=== PATIENT | female | born 1935 | race Caucasian/White ===

== ENCOUNTER → 2017-07-08 | Outpatient (CLI) | payer MEDICARE ==
[~2017-07-08] MED LIST: ACCUPRIL40 MG PO; ASPIR LOW81 MG PO; BACTRIM DS 8001 TA1 PO; CALTRATE 600600 MG PO; DITROPAN5 MG PO; HYDROCODONE BIT1 T11 PO; LYRICA75 M1 PO; NORVASC10 MG PO; PERCOCET 325 MG1 TA2 PO; PREDNISONE20 M1 PO; SYNTHROID25 MCG PO; VITAMIN D400 IU PO; VITAMIN E PO
[2017-07-08 10:50] LABS: BILIRUBIN NEGATIVE (NEGATIVE); BLOOD 3+ (NEGATIVE); CLARITY CLOUDY (CLEAR); COLOR YELLOW (YELLOW); GLUCOSE NEGATIVE (NEGATIVE); KETONE NEGATIVE (NEGATIVE); LEUKO ESTERASE 2+ (NEGATIVE); NITRITE NEGATIVE (NEGATIVE); UROBILINOGEN 0.2 E.U./dl (0.2-1.0)
[2017-07-08 11:05] LABS: RBC TNTC rbc/hpf (0-2)
[2017-07-08 11:06] LABS: BACTERIA 1+
== END | disposition home or self-care (01) ==
LOC: LAB 09:32 → CT 10:00
PROVIDERS: Urology
DX: N13.39 Other hydronephrosis (principal); N39.0 Urinary tract infection, site not specified

== ENCOUNTER → 2017-08-19 | Outpatient (CLI) | payer MEDICARE ==
[2017-08-19 11:07] LABS: BASO % 0.5 % (0.0-1.0); EOS # 0.2 10*3/uL (0.0-0.4); EOS % 3.2 % (1.0-4.0); HEMATOCRIT 39.7 % (37.0-47.0); HEMOGLOBIN 13.2 g/dl (12.0-16.0); LYMPH # 1.9 10*3/uL (1.3-4.4); LYMPH % 32.7 % (27.0-41.0); MEAN CELL VOLUME 92.5 fl (81.0-99.0); MEAN CORPUSCULAR HGB 30.8 pg (27.0-31.0); MEAN CORPUSCULAR HGB CONC 33.2 g/dl (33.0-37.0); MEAN PLATELET VOLUME 10.9 fl (9.6-12.3); MONO # 0.5 10*3/uL (0.1-1.0); MONO % 8.1 % (3.0-9.0); NEUT # 3.1 10*3/uL (2.3-7.9); NEUT % 55.3 % (47.0-73.0); PLATELET COUNT AUTOMATED 212 10*3/uL (130-400); RED BLOOD COUNT 4.29 10*6/uL (4.10-5.10); RED CELL DISTRI WIDTH 14.1 % (0-14.5); WHITE BLOOD COUNT 5.7 10*3/uL (4.8-10.8)
[2017-08-19 11:42] LABS: ALKALINE PHOSPHATASE 97 U/L (45-117); BUN 20 mg/dl (7-24); CHLORIDE 107 mmol/L (98-107); POTASSIUM 4.4 mmol/L (3.5-5.1); SGOT/AST 24 IU/L (3-35); SGPT/ALT 24 U/L (12-78); SODIUM 140 mmol/L (136-145); T3 UPTAKE 35 % (31-39); THYROXINE (T4) TOTAL 8.6 ug/dl (4.8-13.9); TOTAL PROTEIN 7.5 gm/dL (6.4-8.2)
[2017-08-19 12:30] LABS: BILIRUBIN NEGATIVE (NEGATIVE); BLOOD NEGATIVE (NEGATIVE); CLARITY CLEAR (CLEAR); COLOR YELLOW (YELLOW); GLUCOSE NEGATIVE (NEGATIVE); KETONE NEGATIVE (NEGATIVE); LEUKO ESTERASE NEGATIVE (NEGATIVE); NITRITE NEGATIVE (NEGATIVE); SPECIFIC GRAVITY <= 1.005 (1.005-1.030); UROBILINOGEN 0.2 E.U./dl (0.2-1.0)
[2017-08-19 12:50] LABS: BACTERIA TRACE; RBC 0-2 rbc/hpf (0-2); WBC 0-2 wbc/hpf (0-5)
== END | disposition home or self-care (01) ==
LOC: LAB 10:41 → US 11:00
PROVIDERS: Urology
DX: E83.50 Unspecified disorder of calcium metabolism (principal); K82.8 Other specified diseases of gallbladder

== ENCOUNTER 2017-09-20 10:03 | Emergency (ER) | payer MEDICARE ==
[~2017-09-20] VITALS: Ht 144.7 cm; Wt 60.3 kg
[2017-09-20 10:14] VITALS: BP 157/67
[2017-09-20] MEDS ORDERED: CEPHALEXIN500 M1 PO (10:34)
== END 2017-09-20 10:40 | disposition home or self-care (01) ==
LOC: ED 10:03
DX: L84 Corns and callosities (principal); Z90.710 Acquired absence of both cervix and uterus; Z98.890 Other specified postprocedural states; Z90.49 Acquired absence of other specified parts of digestive tract; Z79.899 Other long term (current) drug therapy; Z79.82 Long term (current) use of aspirin

== ENCOUNTER → 2017-10-06 | Outpatient (CLI) | payer MEDICARE ==
[~2017-10-06] MED LIST changes: +CEPHALEXIN500 M1 PO
== END | disposition home or self-care (01) ==
LOC: RAD 09-22 11:00
DX: Z13.820 Encounter for screening for osteoporosis (principal); N95.9 Unspecified menopausal and perimenopausal disorder; Z90.710 Acquired absence of both cervix and uterus; E55.9 Vitamin D deficiency, unspecified; M81.0 Age-related osteoporosis without current pathological fracture; E23.7 Disorder of pituitary gland, unspecified

== ENCOUNTER → 2018-01-06 | Outpatient (CLI) | payer MEDICARE | END | disposition home or self-care (01) | LOC: CT 13:51 | DX: N20.0 Calculus of kidney (principal); K80.20 Calculus of gallbladder without cholecystitis without obstruction; K57.30 Diverticulosis of large intestine without perforation or abscess without bleeding ==

== ENCOUNTER → 2018-07-21 | Outpatient (CLI) | payer MEDICARE | END | disposition home or self-care (01) | LOC: WOUNDCARE 02:24 | DX: L89.892 Pressure ulcer of other site, stage 2 (principal); I10 Essential (primary) hypertension; E03.9 Hypothyroidism, unspecified; G62.9 Polyneuropathy, unspecified; M19.90 Unspecified osteoarthritis, unspecified site; Z90.710 Acquired absence of both cervix and uterus ==

== ENCOUNTER → 2018-09-06 | Outpatient (CLI) | payer MEDICARE | END | disposition home or self-care (01) | LOC: WOUNDCARE 10:04 | DX: L89.892 Pressure ulcer of other site, stage 2 (principal); L84 Corns and callosities; I10 Essential (primary) hypertension; G62.9 Polyneuropathy, unspecified; E03.9 Hypothyroidism, unspecified; M19.90 Unspecified osteoarthritis, unspecified site; Z87.891 Personal history of nicotine dependence ==

== ENCOUNTER → 2018-09-17 | Outpatient (CLI) | payer MEDICARE | END | disposition home or self-care (01) | LOC: WOUNDCARE 00:32 | DX: L89.892 Pressure ulcer of other site, stage 2 (principal); G62.9 Polyneuropathy, unspecified; I10 Essential (primary) hypertension; E03.9 Hypothyroidism, unspecified; M19.90 Unspecified osteoarthritis, unspecified site ==

== ENCOUNTER → 2019-06-01 | Outpatient (CLI) | payer MEDICARE | END | disposition home or self-care (01) | LOC: US 14:49 | DX: K80.20 Calculus of gallbladder without cholecystitis without obstruction (principal); K76.0 Fatty (change of) liver, not elsewhere classified ==

== ENCOUNTER → 2019-10-13 | Outpatient (CLI) | payer MEDICARE | END | disposition home or self-care (01) | LOC: NM 10-12 10:00 | DX: M41.86 Other forms of scoliosis, lumbar region (principal); M15.9 Polyosteoarthritis, unspecified ==

== ENCOUNTER → 2021-01-11 | Outpatient (CLI) | payer MEDICARE | END | disposition home or self-care (01) | LOC: MRI 10:38 | PROVIDERS: ATTEND Anesthesiology | DX: M50.322 Other cervical disc degeneration at C5-C6 level (principal); M47.812 Spondylosis without myelopathy or radiculopathy, cervical region; M43.12 Spondylolisthesis, cervical region; M48.02 Spinal stenosis, cervical region; M25.78 Osteophyte, vertebrae ==

== ENCOUNTER 2021-01-30 11:53 | Inpatient (IN) | payer MEDICARE ==
[~2021-01-30] VITALS: Ht 144.7 cm; Wt 60.0 kg
[2021-01-30 12:22] LABS: BASO # 0.1 10*3/uL (0.0-0.1); BASO % 0.7 % (0.0-1.0); EOS # 0.1 10*3/uL (0.0-0.4); EOS % 1.1 % (1.0-4.0); HEMATOCRIT 40.1 % (37.0-47.0); LYMPH # 1.3 10*3/uL (1.3-4.4); LYMPH % 17.7 % (27.0-41.0); MEAN CELL VOLUME 95.2 fl (81.0-99.0); MEAN CORPUSCULAR HGB 30.6 pg (27.0-31.0); MEAN CORPUSCULAR HGB CONC 32.2 g/dl (33.0-37.0); MEAN PLATELET VOLUME 10.8 fl (9.6-12.3); MONO # 0.6 10*3/uL (0.1-1.0); MONO % 7.4 % (3.0-9.0); NEUT # 5.4 10*3/uL (2.3-7.9); NEUT % 72.8 % (47.0-73.0); PLATELET COUNT AUTOMATED 272 10*3/uL (130-400); RED BLOOD COUNT 4.21 10*6/uL (4.10-5.10); RED CELL DISTRI WIDTH 13.6 % (0-14.5); WHITE BLOOD COUNT 7.4 10*3/uL (4.8-10.8)
[2021-01-30] MEDS ORDERED: OS-CAL 500+D31 EACH PO (12:27)
[2021-01-30] MEDS ORDERED: ARMOUR THYROID30 M1 PO ×2 (12:28→13:54)
[2021-01-30 12:30] VITALS: BP 124/86
[2021-01-30] MEDS ORDERED: SEPTDS PO ×2 (12:35→13:55)
[2021-01-30 12:38] LABS: ALBUMIN 3.8 gm/dl (3.1-4.5); ALKALINE PHOSPHATASE 110 U/L (45-117); BUN 27 mg/dl (7-24); CHLORIDE 107 mmol/L (98-107); CREATININE 1.43 mg/dL (0.55-1.02); LIPASE 36 U/L (73-393); POTASSIUM 4.9 mmol/L (3.5-5.1); SGOT/AST 25 IU/L (3-35); SGPT/ALT 22 U/L (12-78); SODIUM 137 mmol/L (136-145)
[2021-01-30 12:51] LABS: TROPONIN I < 0.015 ng/ml (<0.045)
[2021-01-30 12:52] LABS: TOTAL PROTEIN 7.6 gm/dL (6.4-8.2)
[2021-01-30 12:53] LABS: BILIRUBIN Negative (Negative); BLOOD Negative (Negative); CLARITY Clear (Clear); COLOR Yellow (Yellow); GLUCOSE Negative (Negative); KETONE Negative (Negative); LEUKO ESTERASE 1+ (Negative); NITRITE Positive (Negative); SPECIFIC GRAVITY <= 1.005 (1.001-1.030); UROBILINOGEN 0.2 E.U./dl (0.0-1.0)
[2021-01-30 13:20] LABS: BACTERIA 1+
[2021-01-30] MEDS ORDERED: LYRICA150 M1 PO (13:50)
[2021-01-30] MEDS ORDERED: VICO10300 PO (13:52)
[2021-01-30] MEDS ORDERED: QUINAPRIL40 MG PO (13:53)
[2021-01-30] MEDS ORDERED: OYSTER SHELL C1 EAC3 PO (13:53)
[2021-01-30] MEDS ORDERED: ALENDRONATE SOD70 M1 PO (13:54)
[2021-01-30] MEDS ORDERED: ASPIRIN CHEWABL81 MG PO (13:55)
[2021-01-30] MEDS ORDERED: VITAMIN E1000 UNI1 PO (13:58)
[2021-01-30 17:00] VITALS: BP 125/46
[2021-01-30 20:00] VITALS: BP 128/48
[2021-01-31] VITALS: BP 132/64
[2021-01-31 06:26] LABS: BASO % 0.7 % (0.0-1.0); EOS # 0.2 10*3/uL (0.0-0.4); EOS % 2.7 % (1.0-4.0); HEMATOCRIT 35.2 % (37.0-47.0); LYMPH % 34.6 % (27.0-41.0); MEAN CELL VOLUME 96.7 fl (81.0-99.0); MEAN CORPUSCULAR HGB 30.8 pg (27.0-31.0); MEAN CORPUSCULAR HGB CONC 31.8 g/dl (33.0-37.0); MEAN PLATELET VOLUME 11.2 fl (9.6-12.3); MONO # 0.5 10*3/uL (0.1-1.0); MONO % 9.4 % (3.0-9.0); NEUT % 52.2 % (47.0-73.0); PLATELET COUNT AUTOMATED 235 10*3/uL (130-400); RED BLOOD COUNT 3.64 10*6/uL (4.10-5.10); RED CELL DISTRI WIDTH 13.6 % (0-14.5); WHITE BLOOD COUNT 5.7 10*3/uL (4.8-10.8)
[2021-01-31 06:32] LABS: CREATININE 1.07 mg/dL (0.55-1.02); POTASSIUM 4.7 mmol/L (3.5-5.1); TOTAL PROTEIN 6.3 gm/dL (6.4-8.2)
[2021-01-31 08:00] VITALS: BP 147/54
[2021-01-31 12:00] VITALS: BP 148/52
[2021-01-31 16:00] VITALS: BP 152/57
[2021-01-31 20:00] VITALS: BP 150/59
[2021-02-01] VITALS: BP 156/61
[2021-02-01 06:13] LABS: BASO % 0.5 % (0.0-1.0); EOS # 0.2 10*3/uL (0.0-0.4); EOS % 3.7 % (1.0-4.0); HEMATOCRIT 35.2 % (37.0-47.0); LYMPH # 2.4 10*3/uL (1.3-4.4); LYMPH % 38.3 % (27.0-41.0); MEAN CELL VOLUME 96.2 fl (81.0-99.0); MEAN CORPUSCULAR HGB 30.9 pg (27.0-31.0); MEAN CORPUSCULAR HGB CONC 32.1 g/dl (33.0-37.0); MEAN PLATELET VOLUME 11.1 fl (9.6-12.3); MONO # 0.6 10*3/uL (0.1-1.0); MONO % 8.9 % (3.0-9.0); NEUT % 48.3 % (47.0-73.0); PLATELET COUNT AUTOMATED 233 10*3/uL (130-400); RED BLOOD COUNT 3.66 10*6/uL (4.10-5.10); RED CELL DISTRI WIDTH 13.6 % (0-14.5); WHITE BLOOD COUNT 6.3 10*3/uL (4.8-10.8)
[2021-02-01 06:27] LABS: BUN 19 mg/dl (7-24); CHLORIDE 115 mmol/L (98-107); CREATININE 1.05 mg/dL (0.55-1.02); POTASSIUM 4.3 mmol/L (3.5-5.1); SODIUM 143 mmol/L (136-145)
[2021-02-01 08:00] VITALS: BP 154/58
== END 2021-02-01 09:55 | disposition home health service (06) | DRG 683 ==
LOC: ED 11:53 → 5E 13:57 → EDHOLD 13:57 → 5E 16:27
PROVIDERS: Emergency Medicine; ADMIT Internal Medicine; ATTEND Internal Medicine
DX: N17.0 Acute kidney failure with tubular necrosis (principal); E44.1 Mild protein-calorie malnutrition; T36.8X5A Adverse effect of other systemic antibiotics, initial encounter; E86.0 Dehydration; M81.0 Age-related osteoporosis without current pathological fracture; K80.20 Calculus of gallbladder without cholecystitis without obstruction; M19.91 Primary osteoarthritis, unspecified site; E03.9 Hypothyroidism, unspecified; I12.9 Hypertensive chronic kidney disease with stage 1 through stage 4 chronic kidney disease, or unspecified chronic kidney disease; N18.31 Chronic kidney disease, stage 3a; N20.0 Calculus of kidney; N28.89 Other specified disorders of kidney and ureter; Z90.710 Acquired absence of both cervix and uterus; Z98.891 History of uterine scar from previous surgery; Y92.89 Other specified places as the place of occurrence of the external cause; Z68.28 Body mass index [BMI] 28.0-28.9, adult; Z82.61 Family history of arthritis; Z80.3 Family history of malignant neoplasm of breast

== ENCOUNTER 2021-02-21 14:24 | Emergency (ER) | payer MEDICARE ==
[~2021-02-21] VITALS: Ht 144.7 cm; Wt 53.5 kg
[~2021-02-21 14:24] MED LIST changes: +ALENDRONATE SOD70 M1 PO; +ARMOUR THYROID30 M1 PO; +ASPIRIN CHEWABL81 MG PO; +LYRICA150 M1 PO; +OS-CAL 500+D31 EACH PO; +OYSTER SHELL C1 EAC3 PO; +QUINAPRIL40 MG PO; +SEPTDS PO; +VICO10300 PO; +VITAMIN E1000 UNI1 PO
[2021-02-21 15:24] VITALS: BP 107/47
[2021-02-21 16:16] LABS: BILIRUBIN Negative (Negative); BLOOD Negative (Negative); CLARITY Clear (Clear); COLOR Yellow (Yellow); GLUCOSE Negative (Negative); KETONE Negative (Negative); LEUKO ESTERASE 3+ (Negative); NITRITE Positive (Negative); SPECIFIC GRAVITY <= 1.005 (1.001-1.030); UROBILINOGEN 0.2 E.U./dl (0.0-1.0)
[2021-02-21 16:26] LABS: RBC 0-2 rbc/hpf (0-2)
[2021-02-21 16:27] LABS: BACTERIA 2+
== END 2021-02-21 17:43 | disposition home or self-care (01) ==
LOC: ED 14:24
PROVIDERS: Emergency Medicine
DX: N39.0 Urinary tract infection, site not specified (principal); Z90.710 Acquired absence of both cervix and uterus; Z98.890 Other specified postprocedural states; Z79.899 Other long term (current) drug therapy; Z79.82 Long term (current) use of aspirin

== ENCOUNTER 2022-08-28 09:58 | Emergency (ER) | payer MEDICARE ==
[~2022-08-28] VITALS: Ht 144.7 cm; Wt 53.5 kg
[2022-08-28 10:15] VITALS: BP 173/56
== END 2022-08-28 13:20 | disposition home or self-care (01) ==
LOC: ED 09:58
DX: M25.562 Pain in left knee (principal); Z79.899 Other long term (current) drug therapy; Z79.82 Long term (current) use of aspirin; Z90.710 Acquired absence of both cervix and uterus; Z98.890 Other specified postprocedural states

== ENCOUNTER 2022-11-20 14:06 | Emergency (ER) | payer MEDICARE ==
[~2022-11-20] VITALS: Ht 142.2 cm; Wt 54.4 kg
[2022-11-20 14:53] LABS: BASO # 0.1 10*3/uL (0.0-0.1); BASO % 0.8 % (0.0-1.0); EOS # 0.3 10*3/uL (0.0-0.4); EOS % 4.2 % (1.0-4.0); HEMATOCRIT 36.1 % (37.0-47.0); LYMPH # 1.6 10*3/uL (1.3-4.4); LYMPH % 26.5 % (27.0-41.0); MEAN CORPUSCULAR HGB 30.9 pg (27.0-31.0); MEAN CORPUSCULAR HGB CONC 33.2 g/dl (33.0-37.0); MEAN PLATELET VOLUME 10.8 fl (9.6-12.3); MONO # 0.6 10*3/uL (0.1-1.0); MONO % 9.4 % (3.0-9.0); NEUT # 3.6 10*3/uL (2.3-7.9); NEUT % 58.8 % (47.0-73.0); PLATELET COUNT AUTOMATED 312 10*3/uL (130-400); RED BLOOD COUNT 3.88 10*6/uL (4.10-5.10); RED CELL DISTRI WIDTH 13.7 % (0-14.5); WHITE BLOOD COUNT 6.2 10*3/uL (4.8-10.8)
[2022-11-20 15:22] LABS: POTASSIUM 4.3 mmol/L (3.4-5.1); TOTAL PROTEIN 6.8 gm/dL (6.0-8.0)
[2022-11-20 16:32] LABS: BILIRUBIN Negative (Negative); BLOOD Negative (Negative); CLARITY Clear (Clear); COLOR Yellow (Yellow); GLUCOSE Negative (Negative); KETONE Negative (Negative); LEUKO ESTERASE 3+ (Negative); NITRITE Positive (Negative); SPECIFIC GRAVITY <= 1.005 (1.001-1.030); UROBILINOGEN 0.2 E.U./dl (0.0-1.0)
[2022-11-20 17:10] LABS: BACTERIA 2+; WBC 31-40 wbc/hpf (0-5)
[2022-11-20] MEDS ORDERED: MACROBID100 M1 PO (18:29)
== END 2022-11-20 22:03 | disposition home or self-care (01) ==
LOC: ED 14:06
PROVIDERS: Physician Assistant
DX: N39.0 Urinary tract infection, site not specified (principal); K80.20 Calculus of gallbladder without cholecystitis without obstruction; Z79.899 Other long term (current) drug therapy; Z79.82 Long term (current) use of aspirin; Z98.890 Other specified postprocedural states; Z90.710 Acquired absence of both cervix and uterus